=== PATIENT | male | born 1960 | race Caucasian/White ===

== ENCOUNTER 2022-12-11 12:17 | Day surgery (SDC) | payer OTHER, SELFPAY ==
[2022-12-09 09:25] VITALS: BMI 25.6
[2022-12-11 12:42] VITALS: BP 142/88; PULSE 58; RESP 16; TEMP 36.4; O2SAT 98; BMI 25.6
[2022-12-11] MEDS: LACTATED RINGERS 1,000 ML 42 ML IV (12:57)
--- NOTE | 2022-12-11 14:05 | P.HP_ITS ---
History of Present Illness History of Present Illness Date Patient Seen: 12/11/22 Time Patient Seen: 14:05 Chief complaint: SDC Narrative: 62-year-old male last seen in clinic 09/23/2022 presents for uvulectomy/UPPP for persistent acquired elongated uvula, respiratory obstruction dysphagia and globus sensation. No interval health changes, wishes to proceed. [facility] Medical History Acquired elongated uvula Dysphagia Globus sensation Hearing loss Migraine Respiratory obstruction Tinnitus Surgical History History of lumbar laminectomy Hx of hernia repair Social History household members: spouse Smoking Status: Never smoker alcohol intake: current Meds Home Medications and Allergies Home Medications Medication Instructions Recorded Confirmed Type rizatriptan 10 mg tablet (Maxalt) 10 mg PO Q DAY PRN ##6 02/08/13 12/11/22 Rx Allergies Allergy/AdvReac Type Severity Reaction Status Date / Time Sulfa (Sulfonamide Allergy Unknown Verified 12/11/22 12:48 Antibiotics) Review of Systems Review of Systems Narrative: Negative except as listed in the HPI Exam Vital Signs (past 8 hours): - 12/11/22 12:42 Temperature 97.5 F L Pulse Rate 58 L Respiratory Rate 16 Blood Pressure 142/88 H Pulse Oximetry 98 Oxygen Delivery Method Room Air Oxygen Delivery Method Room Air Narrative Exam Narrative: Well-developed well-nourished, heart regular rate and rhythm without murmur, lungs clear to auscultation bilaterally Assessment & Plan Assessment & Plan narrative: Assessment: Acquired elongated uvula, respiratory obstruction, dysphagia, globus sensation Plan: Following discussion of the material risks benefits complications and alternatives, the patient elected to proceed.
--- NOTE | 2022-12-11 14:05 | PM.PREOP ---
Pre-operative Note Interval Note History & Physical reviewed/Exam performed by Physician: Yes Changes to H&P: No
--- NOTE | 2022-12-11 14:06 | P.OP_ITS ---
Operative Date/Time/Diagnoses Date of procedure: 12/11/22 Time of procedure: 15:15 Pre-op diagnosis: Acquired elongated uvula, respiratory obstruction, dysphagia, globus sensation Post-op diagnosis: same Procedure & Clinicians Procedure: UPPP and uvulectomy Same procedure as scheduled: Yes Indications: 62 Year old with the above diagnoses incompletely managed with medical therapy presents for the above procedure. Following discussion of the material risks benefits complications and alternatives, the parents elected to proceed. Surgeon: Dennis Fraser Click Yes if Unassisted: Yes Anesthesia Type: General and Local Operative Notes Findings: Thick elongated uvula including mucosa, submucosal fat and muscle, nearly completely amputated and folded and pexied to the soft palate via uvulopalatal flap. Estimated Blood Loss (mL): 5 Procedure in detail: Following identification and confirmation of consent the patient was brought to the operating room suite and placed in the supine position. General endotracheal anesthesia was administered. A head wrap, shoulder roll, and mouth gag were placed. I marked in ink a karsten-shaped area of mucosa then included the base of the uvula and extended onto the inferior border of the soft palate to represent the uvulopalatal flap. The area was widely infiltrated with 2% lid ocaine 1 100,000 epinephrine. Full-thickness uvula was amputated approximately 1/3 from its base. I then thinned the submucosal fat and kept the mucosa intact to allow the uvulopalatal flap. The mucosa and remaining uvula was folded anteriorly and sutured to the free mucosal edge of the defect with interrupted 4-0 Vicryl along the entire incision line, including some submucosal tissue. The incision was infiltrated with 2% lidocaine 1 100,000 epinephrine, and hemostasis was assured.. Mouth gag was removed and the patient was extubated in the operating room and taken to the recovery room in stable condition without known complication. Complications: none Post-operative Condition: stable Disposition: same day surgery Plan for aftercare: Push fluids, alternate Tylenol and Advil every 3 hours for baseline pain control, oxycodone for breakthrough pain. Soft diet 2 full weeks, no heavy lifting or straining 2 weeks. Cold liquids may be helpful.
--- NOTE | 2022-12-11 14:33 | SUR.OPER ---
Supine on padded OR bed, head on pillow, arms secured on padded arm boards at <90 degrees abduction, legs uncrossed, safety belt at thigh, tape over blanket over lower legs.
[2022-12-11] MEDS: LIDOCAINE 2% W/EPI INJ 1 ML INJ (14:36)
[2022-12-11 15:17] VITALS: BP 131/83; PULSE 70; RESP 12; TEMP 36.1; O2SAT 95
[2022-12-11 15:22] VITALS: BP 127/88; PULSE 68; RESP 12; O2SAT 95
[2022-12-11 15:28] VITALS: BP 119/80; PULSE 64; RESP 14; TEMP 36.2; O2SAT 97
[2022-12-11 15:41] VITALS: BP 128/84; PULSE 59; RESP 12; O2SAT 97
[2022-12-11] MEDS: OXYCODONE/ACETAMINOPHEN 5/325 TABLET 1 TAB PO (15:43)
== END 2022-12-11 16:00 | disposition home or self-care (01) ==
PROVIDERS: PCP Physician Assistant; Referring Provider Otolaryngology; Visit Provider Otolaryngology
PROC: (CPT 42145; principal; 2022-12-11 13:30)
DX: K13.79 Other lesions of oral mucosa (principal); J98.8 Other specified respiratory disorders; R13.10 Dysphagia, unspecified; R09.89 Other specified symptoms and signs involving the circulatory and respiratory systems
CPT/HCPCS: 42145; J1100; J2405; J2704; J3010